=== PATIENT | male | born 1980 | race American Indian/Alaskan Native ===

== ENCOUNTER 2016-12-03 09:01 | Emergency (ER) | payer SELFPAY ==
--- NOTE | 2016-12-03 10:20 | Emergency Department Report ---
- General Chief complaint: Skin Rash Stated complaint: ITCHING Time Seen by Provider: 12/03/16 10:07 Source: patient Mode of arrival: Ambulatory Limitations: No Limitations - History of Present Illness Initial comments: This is a 36-year-old male that presents with feeling itching x6 days. Patient stated mother has recent changed laundry detergent and he thinks caused these symptoms. Patient denies any different food contact. Patient denies swelling, fever, chills, rash, difficulty breathing, shortness of breath, chest pain, numbness, tingling, abd pain, pus or drainge, or drooling. Patient stated is relieved by shower but after putting on clothing symptoms return. Patient denies any OTC treatment. Patient denies any drug allergies. Denies SPMHX. MD complaint: other (itching) -: Gradual, days(s) (6) Location: generalized Severity: mild Severity scale (0 -10): 0 Consistency: constant Improves with: other (shower) Worsens with: none Context: none Associated symptoms: denies other symptoms Treatments Prior to Arrival: none - Related Data Previous Rx's Medication Instructions Recorded Last Taken Type Acetaminophen/Codeine 1 tab PO Q6H PRN #20 tab 04/15/14 Unknown Rx [Acetaminophen-Codeine #3 TAB] Amoxicillin/K Clav Tab [Augmentin 1 tab PO BID #20 tablet 04/15/14 Unknown Rx 875MG] Ibuprofen [Motrin] 600 mg PO Q8H PRN #50 tablet 04/15/14 Unknown Rx predniSONE [Deltasone] 50 mg PO QDAY #5 tab 04/15/14 Unknown Rx Loratadine [Claritin] 10 mg PO DAILY #5 tablet 12/03/16 Unknown Rx predniSONE [Deltasone] 20 mg PO BID #10 tab 12/03/16 Unknown Rx Allergies Allergy/AdvReac Type Severity Reaction Status Date / Time No Known Allergies Allergy Unverified 04/15/14 22:32 Abscess Boil HPI - HPI Chief Complaint: Skin Rash Stated Complaint: ITCHING Time Seen by Provider: 12/03/16 10:07 Home Medications: Previous Rx's Medication Instructions Recorded Last Taken Type Acetaminophen/Codeine 1 tab PO Q6H PRN #20 tab 04/15/14 Unknown Rx [Acetaminophen-Codeine #3 TAB] Amoxicillin/K Clav Tab [Augmentin 1 tab PO BID #20 tablet 04/15/14 Unknown Rx 875MG] Ibuprofen [Motrin] 600 mg PO Q8H PRN #50 tablet 04/15/14 Unknown Rx predniSONE [Deltasone] 50 mg PO QDAY #5 tab 04/15/14 Unknown Rx Loratadine [Claritin] 10 mg PO DAILY #5 tablet 12/03/16 Unknown Rx predniSONE [Deltasone] 20 mg PO BID #10 tab 12/03/16 Unknown Rx Allergies/Adverse Reactions: Allergies Allergy/AdvReac Type Severity Reaction Status Date / Time No Known Allergies Allergy Unverified 04/15/14 22:32 ED Review of Systems ROS: Stated complaint: ITCHING Other details as noted in HPI Constitutional: denies: chills, fever Eyes: denies: eye pain, eye discharge, vision change ENT: denies: ear pain, throat pain Respiratory: denies: cough, shortness of breath, wheezing Cardiovascular: denies: chest pain, palpitations Endocrine: no symptoms reported Gastrointestinal: denies: abdominal pain, nausea, diarrhea Genitourinary: denies: urgency, dysuria Musculoskeletal: denies: back pain, joint swelling, arthralgia Skin: pruritus. denies: rash, lesions Neurological: denies: headache, weakness, paresthesias Psychiatric: denies: anxiety, depression Hematological/Lymphatic: denies: easy bleeding, easy bruising ED Past Medical Hx - Past Medical History Previous Medical History?: Yes Additional medical history: HEART MURMUR - Surgical History Past Surgical History?: Yes Additional Surgical History: DENTAL SURGERY 2012 - Social History Smoking Status: Never Smoker Substance Use Type: None - Medications Home Medications: Home Medications Medication Instructions Recorded Confirmed Last Taken Type Acetaminophen/Codeine 1 tab PO Q6H PRN #20 tab 04/15/14 Unknown Rx [Acetaminophen-Codeine #3 TAB] Amoxicillin/K Clav Tab [Augmentin 1 tab PO BID #20 tablet 04/15/14 Unknown Rx 875MG] Ibuprofen [Motrin] 600 mg PO Q8H PRN #50 tablet 04/15/14 Unknown Rx predniSONE [Deltasone] 50 mg PO QDAY #5 tab 04/15/14 Unknown Rx Loratadine [Claritin] 10 mg PO DAILY #5 tablet 12/03/16 Unknown Rx predniSONE [Deltasone] 20 mg PO BID #10 tab 12/03/16 Unknown Rx ED Physical Exam - General Limitations: No Limitations General appearance: alert, in no apparent distress - Head Head exam: Present: atraumatic, normocephalic - Eye Eye exam: Present: normal appearance, PERRL, EOMI. Absent: scleral icterus, conjunctival injection, nystagmus, periorbital swelling, periorbital tenderness Pupils: Present: normal accommodation - ENT ENT exam: Present: normal exam, normal orophraynx, mucous membranes moist, TM's normal bilaterally, normal external ear exam - Neck Neck exam: Present: normal inspection, full ROM. Absent: tenderness, meningismus, lymphadenopathy, thyromegaly - Respiratory Respiratory exam: Present: normal lung sounds bilaterally. Absent: respiratory distress, wheezes, rales, rhonchi, stridor, chest wall tenderness, accessory muscle use, decreased breath sounds, prolonged expiratory - Cardiovascular Cardiovascular Exam: Present: regular rate, normal rhythm, normal heart sounds. Absent: bradycardia, tachycardia, irregular rhythm, systolic murmur, diastolic murmur, rubs, gallop - GI/Abdominal GI/Abdominal exam: Present: soft, normal bowel sounds. Absent: distended, tenderness, guarding, rebound, rigid, diminished bowel sounds - Rectal Rectal exam: Present: deferred - Extremities Exam Extremities exam: Present: normal inspection, full ROM, normal capillary refill. Absent: tenderness, pedal edema, joint swelling - Back Exam Back exam: Present: normal inspection, full ROM. Absent: tenderness, CVA tenderness (R), CVA tenderness (L), muscle spasm, paraspinal tenderness, vertebral tenderness, rash noted - Neurological Exam Neurological exam: Present: alert, oriented X3, CN II-XII intact, normal gait - Psychiatric Psychiatric exam: Present: normal affect, normal mood - Skin Skin exam: Present: warm, dry, intact, normal color, other (diffuse pruritus). Absent: rash, cyanosis, diaphoretic, erythema, urticaria, vesicles, petechiae, pallor, abrasion, ecchymosis ED Course Vital Signs 12/03/16 09:06 Temperature 98.3 F Pulse Rate 76 Respiratory 16 Rate Blood Pressure 140/97 O2 Sat by Pulse 99 Oximetry - Reevaluation(s) Reevaluation #1: 12/03/16 10:21 Patient is sitting down and on cellphone with no signs of distress noted ED Medical Decision Making - Medical Decision Making Ed Course: This is a 36-year-old male that presents with contact dermatitis 1- after my physical exam, patient received prednisone and Claritin to discharge. 2- Patient was instructed to follow-up with his primary care doctor in 3-5 days or if symptoms worsen such as difficulty breathing, worsening symptoms, chest pain, severe itching return back to emergency room as soon as possible. 3-at time time of discharge, the patient does not seem toxic or ill in appearance. No acute signs of distress noted. Patient agrees to discharge treatment plan of care. No further questions noted by the patient. Critical care attestation.: If time is entered above; I have spent that time in minutes in the direct care of this critically ill patient, excluding procedure time. ED Disposition Clinical Impression: Contact dermatitis Qualifiers: Contact dermatitis type: unspecified Contact dermatitis trigger: unspecified trigger Qualified Code(s): L25.9 - Unspecified contact dermatitis, unspecified cause Disposition: - TO HOME OR SELFCARE Is pt being admited?: No Does the pt Need Aspirin: No Condition: Stable Instructions: Prednisone (By mouth), Loratadine (By mouth), Contact Dermatitis (ED) Additional Instructions: follow-up with your primary care doctor in 3-5 days or if symptoms worsen such as difficulty breathing, worsening symptoms, chest pain, severe itching return back to emergency room as soon as possible. Take prednisone as prescribed and Claritin as needed for itching.. Change laundry detergent if possible due to possible side effect of current detergent Prescriptions: Loratadine [Claritin] 10 mg PO DAILY #5 tablet predniSONE [Deltasone] 20 mg PO BID #10 tab Referrals: PRIMARY MD FRANCOISE [Primary Care Provider] - 3-5 Days YADIRA KEEN JR, MD [Staff Physician] - 3-5 Days [facility] [Outside] - 3-[address] [facility] [place] [Outside] - 3-5 Days Forms: Work/School Release Form(ED)
[2016-12-03 11:32] VITALS: BP 151/93
== END 2016-12-03 11:32 | disposition home or self-care (01) ==
LOC: ED 09:01
DX: L25.9 Unspecified contact dermatitis, unspecified cause (principal)
CPT/HCPCS: 99282

== ENCOUNTER 2018-06-19 07:00 | Emergency (ER) | payer OTHER ==
--- NOTE | 2018-06-19 07:46 | Emergency Department Report ---
Minor Respiratory - HPI Chief Complaint: Nosebleed Stated Complaint: VOMITTING BLOOD NOSE BLEED ACID REFLUX Time Seen by Provider: 06/19/18 07:31 Duration: 1 Day Pain Location: Nose Severity: mild Minor Respiratory: Yes Able to Tolerate Fluids, No Rhinorrhea, No Sore Throat, No Ear Pain, No Cough, No Sick Contacts, No Hemoptysis, No Chest Pain, No Shortness of Breath, No Fever Other History: Patient is a very pleasant 37-year-old male who comes to the emergency room with concerns about his nosebleed. He woke up this morning and was coughing and then noted that he had a bloody nose. He stated that he wiped his nose and the bleeding stopped. Patient is on Truvada prophylactically. No other home medications. No blood thinners. No trauma. Patient's has a history of GERD. Patient's vital signs are normal, he is not hypertensive. He is not tachycardic. He is ambulatory and nontoxic ED Review of Systems ROS: Stated complaint: VOMITTING BLOOD NOSE BLEED ACID REFLUX Other details as noted in HPI Comment: All other systems reviewed and negative Constitutional: denies: chills Eyes: denies: eye pain ENT: epistaxis, other (right nares no bleeding in the ER) Respiratory: denies: cough Cardiovascular: denies: chest pain Endocrine: denies: excessive sweating Gastrointestinal: denies: nausea Genitourinary: denies: dysuria Musculoskeletal: denies: as per HPI Skin: denies: rash Neurological: denies: headache Psychiatric: denies: anxiety Hematological/Lymphatic: denies: easy bleeding ED Past Medical Hx - Past Medical History Previous Medical History?: Yes Hx Hypertension: Yes Additional medical history: HEART MURMUR - Surgical History Past Surgical History?: Yes Additional Surgical History: DENTAL SURGERY 2012 - Social History Smoking Status: Never Smoker Substance Use Type: None - Medications Home Medications: Home Medications Medication Instructions Recorded Confirmed Last Taken Type Acetaminophen/Codeine 1 tab PO Q6H PRN #20 tab 04/15/14 Unknown Rx [Acetaminophen-Codeine #3 TAB] Amoxicillin/K Clav Tab [Augmentin 1 tab PO BID #20 tablet 04/15/14 Unknown Rx 875MG] Ibuprofen [Motrin] 600 mg PO Q8H PRN #50 tablet 04/15/14 Unknown Rx RX: predniSONE [Deltasone] 50 mg PO QDAY #5 tab 04/15/14 Unknown Rx Loratadine [Claritin] 10 mg PO DAILY #5 tablet 12/03/16 Unknown Rx RX: predniSONE [Deltasone] 20 mg PO BID #10 tab 12/03/16 Unknown Rx Minor Respiratory Exam - Exam General: Vital signs noted. No distress. Alert and acting appropriately. On exam patient has a scratch inside his right nares, medial surface of the mucosal lining. There is no bleeding in the ER. There is no scab formed. Patient has been educated on care and management of this nosebleed HEENT: Yes Moist Mucous Membranes, No Pharyngeal Erythema, No Pharyngeal Exudates, No Rhinorrhea, No Conjuctival Injection, No Frontal Tenderness, No Maxillary Tenderness Ear: Neither TM Bulge, Neither TM Erythema, Neither EAC Pain, Neither EAC Discharge Neck: Yes Supple, No Adenopathy Lungs: Yes Good Air Exchange, No Wheezes, No Ronchi, No Stridor, No Cough, No Labored Respirations, No Retractions, No Use of Accessory Muscles, No Other Abnormal Lung Sounds Heart: Yes Regular, No Murmur Abdomen: Yes Normal Bowel Sounds, No Tenderness, No Peritoneal Signs Skin: No Rash, No Edema Neurologic: Alert and oriented, no deficits. Musculoskeletal: Unremarkable. ED Course Vital Signs 06/19/18 07:26 Temperature 98.2 F Pulse Rate 80 Respiratory 18 Rate Blood Pressure 139/81 O2 Sat by Pulse 98 Oximetry ED Medical Decision Making - Medical Decision Making no blood thinners no trauma no hypertension no clotting disease no asa/motrin no bleeding in er abrasion inside nose- see exam - Differential Diagnosis nosebleed ? etio Critical care attestation.: If time is entered above; I have spent that time in minutes in the direct care of this critically ill patient, excluding procedure time. ED Disposition Clinical Impression: Bleeding nose Disposition: DC-01 TO HOME OR SELFCARE Is pt being admited?: No Does the pt Need Aspirin: No Condition: Stable Instructions: Phenylephrine (Into the nose) Additional Instructions: AVOID ASPIRIN OR MOTRIN TODAY COOL HUMIDIFICATION IN YOUR ROOM AT NIGHT AVOID TOUCHING NOSE ICE/AND HEAD BACK IF PERSISTS FOLLOW UP PCP IF BECOMES PERSISTENT PROBLEM Referrals: PRIMARY CARE,MD [Primary Care Provider] - 3-5 Days Time of Disposition: 07:45
== END 2018-06-19 07:52 | disposition home or self-care (01) ==
LOC: ED 07:00
CPT/HCPCS: 99281

== ENCOUNTER 2022-02-01 05:41 | Emergency (ER) | payer BC, OTHER ==
[2022-02-01] MEDS ORDERED: guaiFENesin/CODEINE 100-10MG ORAL LIQD 5 ML PO ONE (08:12)
[2022-02-01] MEDS ORDERED: dexAMETHasone 20 MG/5 ML VIAL IM ONE (08:13)
[2022-02-01] MEDS ORDERED: CLINDAMYCIN 150 MG/ML VIAL 6 ML IM ONE (08:34)
--- NOTE | 2022-02-01 08:40 | Emergency Department Report ---
ED ENT HPI - General Chief complaint: Sore Throat Stated complaint: SORE THROAT,TONSIL IMMFLAMMAED Time Seen by Provider: 02/01/22 07:23 Source: patient Mode of arrival: Ambulatory Limitations: No Limitations - History of Present Illness Initial comments: 41-year-old male with no significant history presents with sore throat. Patient describes pain in his throat feels like there is a lump or something in his throat with difficulty swallowing. Symptoms started on Sunday, with associating chills, cough, congestion. Pain is worse with swallowing, unable to eat or drink. Patient reports history of frequent strep infections. Patient denies headache dizziness or vision changes, no nausea vomiting abdominal pain. MD complaint: sore throat Severity: severe Severity scale (0 -10): 10 Quality: constant Improves with: none Associated Symptoms: fever, cough, pain with swallowing, sore throat. denies: discharge from ear - Related Data Previous Rx's Medication Instructions Recorded Last Taken Type Acetaminophen/Codeine 1 tab PO Q6H PRN #20 tab 04/15/14 Unknown Rx [Acetaminophen-Codeine #3 TAB] Amoxicillin/K Clav Tab [Augmentin 1 tab PO BID #20 tablet 04/15/14 Unknown Rx 875MG] predniSONE [Deltasone] 50 mg PO QDAY #5 tab 04/15/14 Unknown Rx Loratadine (Nf) [Claritin] 10 mg PO DAILY #5 tablet 12/03/16 Unknown Rx predniSONE [Deltasone] 20 mg PO BID #10 tab 12/03/16 Unknown Rx Clindamycin [Clindamycin CAP] 300 mg PO Q8H 10 Days cap 02/01/22 Unknown Rx Ibuprofen [Motrin 600 MG tab] 600 mg PO Q8H PRN #50 tablet 02/01/22 Unknown Rx guaiFENesin/CODEINE [Robitussin AC] 5 ml PO Q6H PRN #120 oral.liqd 02/01/22 Unknown Rx Allergies Allergy/AdvReac Type Severity Reaction Status Date / Time No Known Allergies Allergy Unverified 04/15/14 22:32 ED Dental HPI - General Chief complaint: Sore Throat Stated complaint: SORE THROAT,TONSIL IMMFLAMMAED Time Seen by Provider: 02/01/22 07:23 Source: patient Mode of arrival: Ambulatory Limitations: No Limitations - Related Data Previous Rx's Medication Instructions Recorded Last Taken Type Acetaminophen/Codeine 1 tab PO Q6H PRN #20 tab 04/15/14 Unknown Rx [Acetaminophen-Codeine #3 TAB] Amoxicillin/K Clav Tab [Augmentin 1 tab PO BID #20 tablet 04/15/14 Unknown Rx 875MG] predniSONE [Deltasone] 50 mg PO QDAY #5 tab 04/15/14 Unknown Rx Loratadine (Nf) [Claritin] 10 mg PO DAILY #5 tablet 12/03/16 Unknown Rx predniSONE [Deltasone] 20 mg PO BID #10 tab 12/03/16 Unknown Rx Clindamycin [Clindamycin CAP] 300 mg PO Q8H 10 Days cap 02/01/22 Unknown Rx Ibuprofen [Motrin 600 MG tab] 600 mg PO Q8H PRN #50 tablet 02/01/22 Unknown Rx guaiFENesin/CODEINE [Robitussin AC] 5 ml PO Q6H PRN #120 oral.liqd 02/01/22 Unknown Rx Allergies Allergy/AdvReac Type Severity Reaction Status Date / Time No Known Allergies Allergy Unverified 04/15/14 22:32 ED Review of Systems ROS: Stated complaint: SORE THROAT,TONSIL IMMFLAMMAED Other details as noted in HPI Constitutional: chills ENT: throat pain Respiratory: cough. denies: shortness of breath, SOB with exertion, wheezing Cardiovascular: denies: chest pain, palpitations, dyspnea on exertion Gastrointestinal: denies: abdominal pain, nausea, vomiting Skin: denies: rash Neurological: denies: headache, weakness Psychiatric: denies: anxiety, depression ED Past Medical Hx - Past Medical History Hx Hypertension: Yes Additional medical history: HEART MURMUR - Surgical History Additional Surgical History: DENTAL SURGERY 2012 - Social History Smoking Status: Never Smoker Substance Use Type: None - Medications Home Medications: Home Medications Medication Instructions Recorded Confirmed Last Taken Type Acetaminophen/Codeine 1 tab PO Q6H PRN #20 tab 04/15/14 Unknown Rx [Acetaminophen-Codeine #3 TAB] Amoxicillin/K Clav Tab [Augmentin 1 tab PO BID #20 tablet 04/15/14 Unknown Rx 875MG] predniSONE [Deltasone] 50 mg PO QDAY #5 tab 04/15/14 Unknown Rx Loratadine (Nf) [Claritin] 10 mg PO DAILY #5 tablet 12/03/16 Unknown Rx predniSONE [Deltasone] 20 mg PO BID #10 tab 12/03/16 Unknown Rx Clindamycin [Clindamycin CAP] 300 mg PO Q8H 10 Days cap 02/01/22 Unknown Rx Ibuprofen [Motrin 600 MG tab] 600 mg PO Q8H PRN #50 tablet 02/01/22 Unknown Rx guaiFENesin/CODEINE [Robitussin AC] 5 ml PO Q6H PRN #120 oral.liqd 02/01/22 Unknown Rx ED Physical Exam - General Limitations: No Limitations General appearance: alert, in no apparent distress, other (Tolerating oral secretions) - Head Head exam: Present: atraumatic - Eye Eye exam: Present: normal appearance, PERRL - ENT ENT exam: Absent: normal exam, normal orophraynx - Expanded ENT Exam Expanded Throat exam: Positive: tonsillar erythema, tonsillomegaly, tonsillar exudate, other (Right tonsillar enlargement with erythema, patient has diffuse erythema of his pharynx and his tonsils with copious amount of exudates. Uvula is midline ) - Neck Neck exam: Present: lymphadenopathy - Respiratory Respiratory exam: Present: normal lung sounds bilaterally. Absent: respiratory distress - Cardiovascular Cardiovascular Exam: Present: regular rate, normal rhythm - GI/Abdominal GI/Abdominal exam: Present: soft. Absent: distended, tenderness - Extremities Exam Extremities exam: Present: normal inspection, full ROM - Neurological Exam Neurological exam: Present: alert, oriented X3 - Skin Skin exam: Present: warm, dry, intact, normal color ED Course Vital Signs 02/01/22 02/01/22 02/01/22 06:04 07:32 07:36 Temperature 100 F H 100.2 F H Pulse Rate 97 H Respiratory 18 Rate Blood Pressure 141/91 [Right] O2 Sat by Pulse 96 100 97 Oximetry ED Medical Decision Making - Medical Decision Making 41-year-old male with no significant history presents with sore throat. Patient describes pain in his throat feels like there is a lump or something in his throat with difficulty swallowing. Symptoms started on Sunday, with associating chills, cough, congestion. Pain is worse with swallowing, unable to eat or drink. Patient reports history of frequent strep infections. Patient denies headache dizziness or vision changes, no nausea vomiting abdo heather pain. Patient denies history of HIV, states he gets tested every 3 months and is currently taking Truvada daily. Based on his history and exam, patient treated in the emergency department with IM injections of clindamycin, discharged with clindamycin capsules, pain management, and ENT referral. Vital signs also improved, he is tolerating oral secretions, Patient remained stable nontoxic-appearing, afebrile, ambulating steadily without assistance. Gone over ED findings with patient as well as plan for follow-up. Also discussed return precautions with patient, all questions and concerns addressed. Patient is stable to be discharged follow-up outpatient. Audio voice dictation device used, hence the chart might contain some dictation errors, mispronunciations, wrong spelling and wrong verbiage. Critical care attestation.: If time is entered above; I have spent that time in minutes in the direct care of this critically ill patient, excluding procedure time. ED Disposition Clinical Impression: Exudative tonsillitis, Exudative pharyngitis Disposition: HOME / SELF CARE / HOMELESS Is pt being admited?: No Does the pt Need Aspirin: No Condition: Stable Instructions: Tonsillitis, [id number] Prescriptions: Clindamycin [Clindamycin CAP] 300 mg PO Q8H 10 Days cap Ibuprofen [Motrin 600 MG tab] 600 mg PO Q8H PRN #50 tablet PRN Reason: Pain guaiFENesin/CODEINE [Robitussin AC] 5 ml PO Q6H PRN #120 oral.liqd PRN Reason: Pain , Severe (7-10) Referrals: PRIMARY CAREMD [Primary Care Provider] - 3-5 Days ENT [facility] [Provider Group] - 3-5 Days Forms: Work/School Release Form(ED)
[2022-02-01 09:24] VITALS: BP 141/82
== END 2022-02-01 09:23 | disposition home or self-care (01) ==
LOC: ED 05:41
DX: J03.90 Acute tonsillitis, unspecified (principal); I10 Essential (primary) hypertension; Z98.890 Other specified postprocedural states; Z79.899 Other long term (current) drug therapy
CPT/HCPCS: 87116; 87430; 96372; 99283; J1100